=== PATIENT | male | born 1980 | race Caucasian/White ===

== ENCOUNTER 2019-11-16 07:57 | Inpatient (IN) ==
[2019-11-16] MEDS ORDERED: DIPH/TET/ACEL PERT BOOSTER VACCINE 0.5 ML VIAL IM ONE (08:07)
[2019-11-16 08:17] LABS: Basophils % 0.3 % (0.0-0.8); Eosinophils # 0.2 10*3/uL (0.0-0.87); Eosinophils % 1.8 % (0.00-10.9); Hematocrit 42.4 VOL% (42.0-52.0); Immature Granulocytes % 0.4 %; Immature Granulocytes Absolute 0.05 #; Lymphocytes # 2.1 10*3/uL (1.4-4.0); Lymphocytes % 17.7 % (21.2-54.2); Mean Corpuscular Volume 96.4 FL (87-102); Mean Platelet Volume 9.9 FL (9.6-12.0); Monocytes % 5.4 % (1.7-12.7); Neutrophils % 74.4 % (38.7-73.9); Platelet Count 196 T/CUMM (130-400); Red Cell Distribution Width 12.8 % (9.3-17.3); White Blood Count 11.6 T/CUMM (4-12)
[2019-11-16 08:28] LABS: Apearance,Urine Slightly Hazy (Clear); Bilirubin,Urine Negative (Negative); Blood, Urine Large mg/dL (Negative); Glucose,Urine (UA) Negative (Negative); Ketones,Urine 5 mg/dL (Negative); Mucus,Urine Occasional /LPF (Occasional); Nitrite,Urine Negative (Negative); Protein,Urine 30 MG/DL; RBC,Urine 54 /HPF (0-4); Urine Color Amber (Yellow); Urine Specific Gravity 1.024 (1.001-1.035); WBC,Urine 10 /HPF (0-6)
[2019-11-16 08:32] LABS: PT Patient Result 10.7 SECS (9.8-11.9)
[2019-11-16 08:34] LABS: Alanine Aminotransferase 68 U/L (16-61); Albumin 3.5 G/DL (3.4-5.0); Alkaline Phosphatase 105 U/L (45-117); Aspartate Amino Transferase 105 U/L (0-37); Blood Urea Nitrogen 12 MG/DL (7-18); Calcium 8.6 MG/DL (8.5-10.1); Estimated Glom Filtration Rate 93 ML/MIN; Glucose 102 MG/DL (74-106); Osmolality,Calculated 272.8 MOS/KG (273-304); Total Protein 7.5 G/DL (6.4-8.3)
[2019-11-16 08:39] LABS: Barbiturates Screen,Urine Negative (Negative); Benzodiazepines Screen,Urine Negative (Negative); Cannabinoid Screen,Urine Positive (Negative); Opiate Screen,Urine Negative (Negative); Phencyclidine Screen,Urine Negative (Negative)
[2019-11-16] MEDS ORDERED: SODIUM CHLORIDE 0.9% 1,000 ML IV STA (09:17)
[2019-11-16] MEDS ORDERED: ONDANSETRON 4 MG/2 ML VIAL IV STA (09:18)
[2019-11-16] MEDS ORDERED: HYDROmorphone 2 MG/1 ML VIAL IV STA (09:18)
[2019-11-16] MEDS ORDERED: ALBUTEROL/IPRATROPIUM 3 ML NEB RESP TX PRN (11:05)
[2019-11-16] MEDS ORDERED: BISACODYL 5 MG TABLET PO PRN (11:05)
[2019-11-16] MEDS ORDERED: HYDROmorphone 2 MG/1 ML VIAL IV PRN ×2 (11:05)
[2019-11-16] MEDS ORDERED: ACETAMINOPHEN 325 MG TABLET PO PRN (11:05)
[2019-11-16] MEDS ORDERED: KETOROLAC 15 MG/1 ML VIAL IV PRN (11:05)
[2019-11-16] MEDS ORDERED: ONDANSETRON 4 MG/2 ML VIAL IV PRN (11:05)
[2019-11-16] MEDS ORDERED: LORazepam 2 MG/1 ML VIAL IV PRN (11:43)
[2019-11-16] MEDS: ALBUTEROL/IPRATROPIUM 3 ML NEB RESP TX SCH ×2 (13:25→19:02)
[2019-11-16] MEDS: LACTATED RINGERS 1,000 ML IV SCH (16:38)
[2019-11-16] MEDS: POTASSIUM CHLORIDE RIDER 10 MEQ in PREMIX 1 EACH IV PRN ×3 (16:43→18:49)
[2019-11-17] MEDS: ALBUTEROL/IPRATROPIUM 3 ML NEB RESP TX SCH ×4 (00:45→19:54)
[2019-11-17] MEDS: POTASSIUM CHLORIDE RIDER 10 MEQ in PREMIX 1 EACH IV PRN ×2 (01:16→08:41)
[2019-11-17] MEDS: LACTATED RINGERS 1,000 ML IV SCH ×3 (01:16→18:57)
[2019-11-17 05:02] LABS: Basophils % 0.1 % (0.0-0.8); Eosinophils # 0.1 10*3/uL (0.0-0.87); Hematocrit 43.5 VOL% (42.0-52.0); Hemoglobin 14.1 GM/DL (14.0-18.0); Immature Granulocytes % 0.4 %; Immature Granulocytes Absolute 0.03 #; Lymphocytes # 0.9 10*3/uL (1.4-4.0); Lymphocytes % 13.9 % (21.2-54.2); Mean Corpuscular HGB Conc 32.4 GM/DL (32-36); Mean Corpuscular Volume 96.7 FL (87-102); Monocytes % 8.8 % (1.7-12.7); Neutrophils % 75.8 % (38.7-73.9); Platelet Count 166 T/CUMM (130-400); Red Cell Distribution Width 12.6 % (9.3-17.3); White Blood Count 6.7 T/CUMM (4-12)
[2019-11-17 05:31] LABS: Bilirubin,Total 1.3 MG/DL (0.2-1.0); Calcium 8.6 MG/DL (8.5-10.1); Osmolality,Calculated 272.7 MOS/KG (273-304); Total Protein 6.8 G/DL (6.4-8.3)
[2019-11-17] MEDS: ENOXAPARIN 40 MG/0.4 ML SYRINGE SUBCUT SCH (05:57)
[2019-11-17 06:40] LABS: Apearance,Urine CLEAR (Clear); Bacteria,Urine Occasional /HPF (Few); Bilirubin,Urine Negative (Negative); Blood, Urine Moderate mg/dL (Negative); Glucose,Urine (UA) Negative (Negative); Ketones,Urine 20 mg/dL (Negative); Mucus,Urine Occasional /LPF (Occasional); Nitrite,Urine Negative (Negative); Protein,Urine Negative; RBC,Urine 7 /HPF (0-4); Urine Color Yellow (Yellow); Urine Specific Gravity 1.011 (1.001-1.035); Urine Urobilinogen < 2.0 EU/DL (0.2-1.0); WBC,Urine <1 /HPF (0-6)
[2019-11-17] MEDS: PANTOPRAZOLE 40 MG TABLET PO SCH (08:30)
[2019-11-18] MEDS: ALBUTEROL/IPRATROPIUM 3 ML NEB RESP TX SCH (00:31)
[2019-11-18] MEDS: LACTATED RINGERS 1,000 ML IV SCH ×3 (03:00→19:41)
[2019-11-18] MEDS: ENOXAPARIN 40 MG/0.4 ML SYRINGE SUBCUT SCH (05:59)
[2019-11-18] MEDS: PANTOPRAZOLE 40 MG TABLET PO SCH (08:52)
[2019-11-19] MEDS: LACTATED RINGERS 1,000 ML IV SCH ×3 (03:45→19:26)
[2019-11-19] MEDS: PANTOPRAZOLE 40 MG TABLET PO SCH (08:40)
[2019-11-19] MEDS: ENOXAPARIN 40 MG/0.4 ML SYRINGE SUBCUT SCH (08:40)
[2019-11-20] MEDS: LACTATED RINGERS 1,000 ML IV SCH ×3 (02:07→20:18)
[2019-11-20] MEDS: ENOXAPARIN 40 MG/0.4 ML SYRINGE SUBCUT SCH (08:29)
[2019-11-20] MEDS: PANTOPRAZOLE 40 MG TABLET PO SCH (08:29)
[2019-11-21] MEDS: LACTATED RINGERS 1,000 ML IV SCH (04:35)
[2019-11-21] MEDS: PANTOPRAZOLE 40 MG TABLET PO SCH (09:16)
[2019-11-21] MEDS: ENOXAPARIN 40 MG/0.4 ML SYRINGE SUBCUT SCH (09:16)
[2019-11-21 11:47] VITALS: BP 118/85
[2019-11-21 13:26] LABS: Apearance,Urine CLEAR (Clear); Bilirubin,Urine Negative (Negative); Blood, Urine Negative (Negative); Glucose,Urine (UA) Negative (Negative); Ketones,Urine Negative (Negative); Mucus,Urine Occasional /LPF (Occasional); Nitrite,Urine Negative (Negative); Protein,Urine Negative; RBC,Urine 2 /HPF (0-4); Urine Color Yellow (Yellow); Urine Specific Gravity 1.014 (1.001-1.035); WBC,Urine 12 /HPF (0-6)
== END 2019-11-21 16:03 | disposition home or self-care (01) | DRG 579 ==
LOC: N.ED 07:57 → N.EDINP 11:05 → N.3E 15:45 → N.2E 11-18 04:12
PROVIDERS: ADMIT Surgery; ATTEND Surgery